=== PATIENT | female | born 1990 | race Caucasian/White ===

== ENCOUNTER 2017-01-27 17:50 | Emergency (ER) | payer OTHER ==
[2017-01-27 18:06] VITALS: BP 119/56; PULSE 71; RESP 16; TEMP 98
--- NOTE | 2017-01-27 18:08 | ED ---
Lower Extremity Injury HPI - General Stated Complaint: foot pain Time Seen by Provider: 01/27/17 18:02 Source: RN notes reviewed - History of Present Illness Initial Comments: 26-year-old female presents emergency Department chief complaint of left ankle pain. Patient states history she rolled the ankle and she heard a pop. Patient states the lateral aspect. Patient states it's hard to bear weight because of increased pain. Patient states just sitting is okay. She has noticed a little swelling to the area. Patient denies any other injuries from the incident.Patient denies any recent fever, chills, shortness of breath, chest pain, back pain, abdominal pain, nausea vomiting, numbness or tingling, dysuria or hematuria, constipation or diarrhea, headaches or visual changes, or any other current symptoms. - Related Data Previous Rx's Medication Instructions Recorded Ibuprofen [Motrin] 600 mg PO Q6HR PRN #20 tab 01/27/17 Allergies Allergy/AdvReac Type Severity Reaction Status Date / Time No Known Allergies Allergy Verified 01/27/17 18:09 Review of Systems ROS Statement: Those systems with pertinent positive or pertinent negative responses have been documented in the HPI. ROS Other: All systems not noted in ROS Statement are negative. General Exam - General Exam Comments Initial Comments: General: The patient is awake and alert, in no distress, and does not appear acutely ill. Neck: The neck is supple, there is no tenderness. Cardiovascular: There is a regular rate and rhythm. No murmur, rub or gallop is appreciated. Respiratory: Lungs are clear to auscultation, respirations are non-labored, breath sounds are equal. No wheezes, stridor, rales, or rhonchi. Musculoskeletal: The patient. 2+ pulses. Left foot sprain. Frontal motion of left knee lead ankle and left foot. Patient has tenderness over the lateral aspect. Patient has tenderness along the lateral aspect of the left foot. Patient has full range of motion. Patient has a limp with bearing weight. Neurological: CN II-XII intact, There are no obvious motor or sensory deficits. Coordination appears grossly intact. Speech is normal. Skin: Skin is warm and dry and no rashes or lesions are noted. Psychiatric: Normal mood and affect. Course Vital Signs 01/27/17 18:03 Temperature 98.0 F Pulse Rate 71 Respiratory 16 Rate Blood Pressure 119/56 O2 Sat by Pulse 98 Oximetry Procedures - Orthopedic Splinting/Casting Injury #1 Side: left Lower Extremity Injury Location: ankle Lower Extremity Immobilizer: Fransisco wrap Medical Decision Making - Medical Decision Making 26-year-old female presents for appears the left ankle sprain. X-rays reviewed and negative. Patient was placed in Fransisco bandage. We discussed rest ice and elevation. We discussed return parameters and follow-up. Patient stated that she understood all questions have been answered. She will be discharged home. - Radiology Data Radiology results: report reviewed, image reviewed Disposition Clinical Impression: Left ankle sprain Disposition: HOME SELF-CARE Condition: Stable Instructions: Ankle Sprain (ED) Additional Instructions: Please use medication as discussed. Please follow up with family doctor if symptoms have not improved over the next two days. Please return to the emergency room if your symptoms increase or worsen or for any other concerns. Prescriptions: Ibuprofen [Motrin] 600 mg PO Q6HR PRN #20 tab PRN Reason: Pain Referrals: Sharon Burnett MD [Primary Care Provider] - 1-2 days Derick La DO [Doctor of Osteopathic Medicine] - 1-2 days Time of Disposition: 18:44
--- NOTE | 2017-01-27 18:41 | XR ---
EXAMINATION TYPE: XR ankle complete LT DATE OF EXAM: 01/27/2017 6:29 PM COMPARISON: NONE HISTORY: Weightbearing pain TECHNIQUE: 3 views FINDINGS: I see no fracture nor dislocation. Ankle mortise is anatomic. Joint spaces are fairly paula l. IMPRESSION: Negative left ankle exam.
--- NOTE | 2017-01-27 18:42 | XR ---
EXAMINATION TYPE: XR foot complete LT DATE OF EXAM: 01/27/2017 6:30 PM COMPARISON: NONE HISTORY: Pain with weightbearing TECHNIQUE: 3 views FINDINGS: I see no fracture nor dislocation. Metatarsals are intact. Joint spaces are normal. IMPRESSION: Negative left foot exam.
== END 2017-01-27 19:01 | disposition home or self-care (01) ==
LOC: EC 17:50
DX: S93.402A Sprain of unspecified ligament of left ankle, initial encounter (principal); X50.9XXA Other and unspecified overexertion or strenuous movements or postures, initial encounter
CPT/HCPCS: 99283

== ENCOUNTER 2017-05-19 20:55 | Emergency (ER) | payer OTHER ==
[2017-05-19 21:02] VITALS: BP 128/62; PULSE 74; RESP 18; TEMP 97.5
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
== END 2017-05-19 21:33 | disposition home or self-care (01) ==
LOC: EC 20:55
DX: R20.8 Other disturbances of skin sensation (principal); V09.9XXS Pedestrian injured in unspecified transport accident, sequela
CPT/HCPCS: 99283

== ENCOUNTER 2019-11-16 09:20 | Emergency (ER) | payer OTHER ==
[2019-11-16 09:28] VITALS: TEMP 98.2
--- NOTE | 2019-11-16 10:37 | ED ---
Abdominal Pain HPI - General Chief Complaint: Abdominal Pain Stated Complaint: Cramping Time Seen by Provider: 11/16/19 09:57 Source: patient Mode of arrival: ambulatory Limitations: no limitations - History of Present Illness Initial Comments: Patient is a 29-year-old female presenting to emergency Department with complaints of lower abdominal cramping and pain that started 2 days ago. Patient states she thinks she is approximately 5 weeks . Had a positive test yesterday. . Patient states the pain woke her up many times last night during her sleep, describes it as cramping. No sharp shooting pains. Patient denies any vaginal bleeding at this time. She denies history of abdominal surgeries. She did have some diarrhea yesterday, no fever, chills, nausea, vomiting. She has no other complaints at this time. Upon arrival to ER, her vital signs are stable. - Related Data Previous Rx's Medication Instructions Recorded Ibuprofen [Motrin] 600 mg PO Q6HR PRN #20 tab 01/27/17 Allergies Allergy/AdvReac Type Severity Reaction Status Date / Time No Known Allergies Allergy Verified 05/19/17 21:01 Review of Systems ROS Statement: Those systems with pertinent positive or pertinent negative responses have been documented in the HPI. ROS Other: All systems not noted in ROS Statement are negative. Past Medical History Past Medical History: No Reported History History of Any Multi-Drug Resistant Organisms: None Reported Past Surgical History: No Surgical Hx Reported Past Psychological History: No Psychological Hx Reported Smoking Status: Never smoker Past Alcohol Use History: Rare Past Drug Use History: None Reported General Exam - General Exam Comments Initial Comments: GENERAL: Well-appearing, well-nourished and in no acute distress. HEAD: Atraumatic, normocephalic. EYES: Pupils equal round and reactive to light, extraocular movements intact, sclera anicteric, conjunctiva are normal. ENT: Nares patent, oropharynx clear without exudates. Moist mucous membranes. NECK: Normal range of motion, supple without lymphadenopathy or JVD. LUNGS: Breath sounds clear to auscultation bilaterally and equal. No wheezes rales or rhonchi. HEART: Regular rate and rhythm without murmurs, rubs or gallops. ABDOMEN: Soft, nontender, normoactive bowel sounds. No guarding, no rebound. No masses appreciated. : Normal external exam, normal speculum exam, no bleeding, no foreign bodies. EXTREMITIES: Normal range of motion, no pitting or edema. No clubbing or cyanosis. NEUROLOGICAL: Normal speech, normal gait. PSYCH: Normal mood, normal affect. SKIN: Warm, Dry, normal turgor, no rashes or lesions noted. Limitations: no limitations Course Vital Signs 11/16/19 09:26 Temperature 98.2 F Pulse Rate 75 Respiratory 19 Rate Blood Pressure 105/74 O2 Sat by Pulse 98 Oximetry Medical Decision Making - Medical Decision Making Patient is a 29-year-old female presenting with lower abdominal cramping 3 days. Approximately 5 weeks , . Vital signs are stable. Exam is unremarkable except for some mild suprapubic and lower abdominal tenderness. Laboratory shows no acute abnormalities. HCG Quant is 451. UA is normal, no signs of infection. Ultrasound reveals no gestational sac or pole identified at this time. No other abnormalities seen. Differentials include an early , ectopic , spontaneous . Recommend a follow- up with [facility] and repeat beta in 2 days. These findings were discussed with the patient. Referral to [facility] was given. Patient is agreeable with this plan of care. Return parameters were discussed with the patient she verbalized understanding. Case discussed with Dr. Amin. - Lab Data Result diagrams: 11/16/19 10:14 11/16/19 10:14 Lab Results 11/16/19 11/16/19 11/16/19 Range/Units 10:14 10:14 10:14 WBC 6.2 (3.8-10.6) k/uL RBC 4.85 (3.80-5.40) m/uL Hgb 14.8 (11.4-16.0) gm/dL Hct 43.7 (34.0-46.0) % MCV 90.1 (80.0-100.0) fL MCH 30.5 (25.0-35.0) pg MCHC 33.8 (31.0-37.0) g/dL RDW 12.8 (11.5-15.5) % Plt Count 307 (150-450) k/uL Neutrophils % 63 % Lymphocytes % 28 % Monocytes % 6 % Eosinophils % 1 % Basophils % 0 % Neutrophils # 3.9 (1.3-7.7) k/uL Lymphocytes # 1.7 (1.0-4.8) k/uL Monocytes # 0.3 (0-1.0) k/uL Eosinophils # 0.1 (0-0.7) k/uL Basophils # 0.0 (0-0.2) k/uL Sodium 136 L (137-145) mmol/L Potassium 4.2 (3.5-5.1) mmol/L Chloride 105 (98-107) mmol/L Carbon Dioxide 23 (22-30) mmol/L Anion Gap 8 mmol/L BUN 10 (7-17) mg/dL Creatinine 0.61 (0.52-1.04) mg/dL Est GFR (CKD-EPI)AfAm >90 (>60 ml/min/1.73 sqM) Est GFR (CKD-EPI)NonAf >90 (>60 ml/min/1.73 sqM) Glucose 86 (74-99) mg/dL Calcium 9.8 (8.4-10.2) mg/dL Total Bilirubin 0.7 (0.2-1.3) mg/dL AST 28 (14-36) U/L ALT 17 (4-34) U/L Alkaline Phosphatase 63 (38-126) U/L Total Protein 7.1 (6.3-8.2) g/dL Albumin 4.6 (3.5-5.0) g/dL HCG, Quant 451.5 mIU/mL Urine Color Urine Appearance (Clear) Urine pH (5.0-8.0) Ur Specific Simpson (1.001-1.035) Urine Protein (Negative) Urine Glucose (UA) (Negative) Urine Ketones (Negative) Urine Blood (Negative) Urine Nitrite (Negative) Urine Bilirubin (Negative) Urine Urobilinogen (<2.0) mg/dL Ur Leukocyte Esterase (Negative) Blood Type O Positive Blood Type Recheck No Previous Record Bld Type Recheck Status [facility] ONLY 11/16/19 Range/Units 10:14 WBC (3.8-10.6) k/uL RBC (3.80-5.40) m/uL Hgb (11.4-16.0) gm/dL Hct (34.0-46.0) % MCV (80.0-100.0) fL MCH (25.0-35.0) pg MCHC (31.0-37.0) g/dL RDW (11.5-15.5) % Plt Count (150-450) k/uL Neutrophils % % Lymphocytes % % Monocytes % % Eosinophils % % Basophils % % Neutrophils # (1.3-7.7) k/uL Lymphocytes # (1.0-4.8) k/uL Monocytes # (0-1.0) k/uL Eosinophils # (0-0.7) k/uL Basophils # (0-0.2) k/uL Sodium (137-145) mmol/L Potassium (3.5-5.1) mmol/L Chloride (98-107) mmol/L Carbon Dioxide (22-30) mmol/L Anion Gap mmol/L BUN (7-17) mg/dL Creatinine (0.52-1.04) mg/dL Est GFR (CKD-EPI)AfAm (>60 ml/min/1.73 sqM) Est GFR (CKD-EPI)NonAf (>60 ml/min/1.73 sqM) Glucose (74-99) mg/dL Calcium (8.4-10.2) mg/dL Total Bilirubin (0.2-1.3) mg/dL AST (14-36) U/L ALT (4-34) U/L Alkaline Phosphatase (38-126) U/L Total Protein (6.3-8.2) g/dL Albumin (3.5-5.0) g/dL HCG, Quant mIU/mL Urine Color Yellow Urine Appearance Clear (Clear) Urine pH 7.0 (5.0-8.0) Ur Specific Simpson 1.016 (1.001-1.035) Urine Protein Negative (Negative) Urine Glucose (UA) Negative (Negative) Urine Ketones Negative (Negative) Urine Blood Negative (Negative) Urine Nitrite Negative (Negative) Urine Bilirubin Negative (Negative) Urine Urobilinogen <2.0 (<2.0) mg/dL Ur Leukocyte Esterase Negative (Negative) Blood Type Blood Type Recheck Bld Type Recheck Status Disposition Clinical Impression: Abdominal cramping, Disposition: HOME SELF-CARE Condition: Stable Instructions (If sedation given, give patient instructions): (ED) Additional Instructions: Please return to the Emergency Department if symptoms worsen or any other concerns. Follow-up with [facility] as discussed. Repeat Beta HCG testing in 2 days. Current level is 457 May take tylenol for cramping Is patient prescribed a controlled substance at d/c from ED?: No Referrals: Sharon Burnett MD [Primary Care Provider] - 1-2 days Chyna Stearns MD [STAFF PHYSICIAN] - 1-2 days
[2019-11-16 10:44] LABS: Basophils % (A) 0 %; Eosinophils # (A) 0.1 k/uL (0-0.7); Eosinophils % (A) 1 %; HCT 43.7 % (34.0-46.0); HGB 14.8 gm/dL (11.4-16.0); Lymphocytes # (A) 1.7 k/uL (1.0-4.8); Lymphocytes % (A) 28 %; MCH 30.5 pg (25.0-35.0); MCHC 33.8 g/dL (31.0-37.0); MCV 90.1 fL (80.0-100.0); Mean Platelet Volume 6.5; Monocytes # (A) 0.3 k/uL (0-1.0); Monocytes % (A) 6 %; Neutrophils # (A) 3.9 k/uL (1.3-7.7); Neutrophils % (A) 63 %; Platelet Count 307 k/uL (150-450); RBC 4.85 m/uL (3.80-5.40); RDW 12.8 % (11.5-15.5); WBC 6.2 k/uL (3.8-10.6)
[2019-11-16 10:47] LABS: Appearance,Urine Clear (Clear); Bilirubin,Urine Negative (Negative); Blood,Urine Negative (Negative); Color,Urine Yellow; Glucose,Urine (UA) Negative (Negative); Ketones,Urine Negative (Negative); Leukocyte Esterase,Urine Negative (Negative); Nitrite,Urine Negative (Negative); Protein,Urine Negative (Negative); Specific Gravity,Urine 1.016 (1.001-1.035); Urobilinogen,Urine <2.0 mg/dL (<2.0)
[2019-11-16 11:23] LABS: ALT 17 U/L (4-34); AST 28 U/L (14-36); African American GFR (CKD) >90 (>60 ml/min/1.73 sqM); Albumin 4.6 g/dL (3.5-5.0); Alkaline Phosphatase 63 U/L (38-126); Anion Gap 8 mmol/L; Blood Urea Nitrogen 10 mg/dL (7-17); Calcium 9.8 mg/dL (8.4-10.2); Carbon Dioxide 23 mmol/L (22-30); Chloride 105 mmol/L (98-107); Glucose 86 mg/dL (74-99); Non-African American GFR(CKD) >90 (>60 ml/min/1.73 sqM); Potassium 4.2 mmol/L (3.5-5.1); Sodium 136 mmol/L (137-145); Total Bilirubin 0.7 mg/dL (0.2-1.3); Total Protein 7.1 g/dL (6.3-8.2)
--- NOTE | 2019-11-16 11:39 | US ---
EXAMINATION TYPE: Transabdominal DATE OF EXAM: 11/16/2019 11:17 AM COMPARISON: NONE CLINICAL HISTORY: pain, cramping. cramping EXAM PERFORMED: Transabdominal (TA) EXAM MEASUREMENTS: GESTATIONAL AGE / DATING Dates by LMP: ( 5 weeks/0 days) EDC: 07/18/2020 Dates by First Scan: No previous this is first scan Dates by Current Scan for: No IUP seen at this time MATERNAL ANATOMY Uterus: 10.4 x 5.1 x 4.3 cm Right Ovary: 3.4 x 2.9 x 2.4 cm Left Ovary: 2.9 x 1.7 x 1.9 cm Post CDS / Adnexa: free fluid seen in right adnexa Presence of free fluid: right adx Presence of corpus luteal cyst: right hypoechoic lesion with peripheral vascular flow = 2.0 x 1.9 x 1 .7 cm GESTATION / SURVEY IUP: No IUP seen at this time Date of LMP: 10/12/2019, Beta HcG (if available): Not available at this time No GS, YS or CRL visualized. Cystic appearing lesion seen adjacent to right ovary= 0.6 x 0.4 cm, dif ficult to determine origin. IMPRESSION: 1. Normal-appearing pelvic ultrasound. 2. A gestational sac, yolk sac, or pole is not identified. Correlate with the patient's beta hC G. Differential diagnosis would include early , blighted ovum, ectopic , spontaneou s . Follow-up is recommended.
[2019-11-16 11:40] LABS: HCG,Quantitative Serum 451.5 mIU/mL
[2019-11-16 12:34] VITALS: BP 106/68; PULSE 62; RESP 16
== END 2019-11-16 12:32 | disposition home or self-care (01) ==
LOC: EC 09:20
DX: O99.89 Other specified diseases and conditions complicating pregnancy, childbirth and the puerperium (principal); R10.30 Lower abdominal pain, unspecified; Z3A.01 Less than 8 weeks gestation of pregnancy
CPT/HCPCS: 36415; 76801; 76817; 80053; 81003; 84702; 85025; 86900; 86901; 99284

== ENCOUNTER → 2019-11-17 | Outpatient (CLI) | payer OTHER | END | disposition home or self-care (01) | LOC: LABWHC1 17:12 | PROVIDERS: ATTEND Family Medicine | DX: Z33.3 Pregnant state, gestational carrier (principal) | CPT/HCPCS: 36415; 84702 ==